=== PATIENT | male | born 1965 | race Caucasian/White ===

== ENCOUNTER 2024-04-30 09:27 | Emergency (ER) | payer MEDICARE, OTHER ==
[~2024-04-30] VITALS: Ht 160 cm; Wt 52.2 kg
[2024-04-30] MEDS ORDERED: LIDOCAINE 1%-EPI 1:100,000 20 ML VIAL ONE (09:34)
[2024-04-30] MEDS ORDERED: NEOMY/BACITRA/POLYMYXIN B OINT UD PACKET TP ONE (09:49)
[2024-04-30] MEDS: LIDOCAINE 1%-EPI 1:100,000 20 ML VIAL IJ ONE (10:01)
[2024-04-30] MEDS: NEOMY/BACITRA/POLYMYXIN B OINT UD PACKET TP ONE (10:46)
[2024-04-30] MEDS ORDERED: ACETAMINOPHEN 500 MG TABLET ONE (11:10)
[2024-04-30] MEDS: ACETAMINOPHEN 500 MG TABLET PO ONE (11:29)
[2024-04-30 12:21] VITALS: BP 108/73; O2SAT 100
== END 2024-04-30 12:22 | disposition home or self-care (01) ==
LOC: ER 09:27
DX: S01.511A Laceration without foreign body of lip, initial encounter (principal); W18.39XA Other fall on same level, initial encounter; Y93.89 Activity, other specified; Y92.89 Other specified places as the place of occurrence of the external cause; Y99.8 Other external cause status
CPT/HCPCS: 40650; 99284; J3490; A4606; A4663; A9150

== ENCOUNTER 2024-05-12 17:41 | Emergency (ER) | payer MEDICARE, OTHER ==
[~2024-05-12] VITALS: Ht 160 cm; Wt 56.7 kg
[2024-05-12 18:06] VITALS: O2SAT 98
[2024-05-12] MEDS ORDERED: ACETAMINOPHEN 500 MG TABLET ONE (18:24)
[2024-05-12] MEDS: ACETAMINOPHEN 500 MG TABLET PO ONE (18:27)
== END 2024-05-12 18:35 | disposition home or self-care (01) ==
LOC: ER 17:42
DX: S01.511D Laceration without foreign body of lip, subsequent encounter (principal); K21.9 Gastro-esophageal reflux disease without esophagitis; Z88.5 Allergy status to narcotic agent; X58.XXXD Exposure to other specified factors, subsequent encounter
CPT/HCPCS: A4606; A4663; A9150

== ENCOUNTER 2025-04-22 11:39 | Inpatient (IN) | payer MEDICARE, OTHER ==
[~2025-04-22] VITALS: Ht 160 cm; Wt 59.0 kg
[2025-04-22 12:12] LABS: PLATELET COUNT (AUTO) 366 K/uL (152-348); RED BLOOD CELL COUNT(AUTO) 3.88 MIL/uL (4.06-5.63); RED CELL DISTRIBUTION WIDTH 13.3 % (12.1-16.2); WHITE BLOOD COUNT (AUTO) 7.0 K/uL (3.6-10.2)
[2025-04-22] MEDS ORDERED: LIDOCAINE 2% (GLYDO= UROJET) 10 ML JELLY MM ONE (12:19)
[2025-04-22 12:26] LABS: CREATININE 0.8 mg/dL (0.6-1.3); SODIUM SERUM 146 mmol/L (136-145); UREA NITROGEN, BLOOD 15 mg/dL (7-18)
[2025-04-22 12:32] LABS: ASPARTATE AMINOTRANSFERASE 30 U/L (15-37); TOTAL PROTEIN, SERUM 6.5 g/dL (6.4-8.2)
[2025-04-22] MEDS: LIDOCAINE 2% (GLYDO= UROJET) 10 ML JELLY MM ONE (12:43)
[2025-04-22 13:19] LABS: *BILIRUBIN,URIN 1+ (NEGATIVE); *BLOOD, URINE 3+ (NEGATIVE); *KETONES,URINE NEGATIVE (NEGATIVE); *PROTEIN,URINE 2+ (NEGATIVE); *UROBILINOGEN,URINE 1.0 E.U./dl (NORMAL); LEUKOCYTE ESTERASE ,URINE 1+ (NEGATIVE); NITRITE, URINE POSITIVE (NEGATIVE); UGLUCOSE NEGATIVE (NEGATIVE)
[2025-04-22 13:24] LABS: *CLARITY,URINE HAZY (CLEAR); *COLOR,URINE DARK YELLOW (YELLOW)
[2025-04-22 13:38] LABS: URINE AMORPHOUS URATE MODERATE /HPF
[2025-04-22] MEDS ORDERED: CEFTRIAXONE /D5W 50ML IVPB **ER PYXIS IV ONE (13:54)
[2025-04-22] MEDS: IV NS 1000 ML 1,000 ML IV ONE (14:01)
[2025-04-22] MEDS ORDERED: IOHEXOL 350 100 ML INFUS..BTL ONE (14:03)
[2025-04-22] MEDS ORDERED: IV NORMAL SALINE 250 ML IV ONE (14:03)
[2025-04-22] MEDS ORDERED: TAMS-3 PO (14:24)
[2025-04-22] MEDS ORDERED: OLAN5TAB70 PO (14:24)
[2025-04-22] MEDS ORDERED: APIX5TAB PO (14:24)
[2025-04-22] MEDS ORDERED: diphenhydrAMINE 50 MG/1 ML VIAL ONE (14:41)
[2025-04-22] MEDS ORDERED: LORAZEPAM 2 MG/1 ML VIAL ONE (14:42)
[2025-04-22] MEDS: LORAZEPAM 2 MG/1 ML VIAL IV ONE (14:48)
[2025-04-22] MEDS: diphenhydrAMINE 50 MG/1 ML VIAL IV ONE (14:48)
[2025-04-22] MEDS ORDERED: ENOXAPARIN SODIUM 60 MG/0.6 ML DISP.SYRIN SQ ONE (16:24)
[2025-04-22] MEDS: ENOXAPARIN SODIUM 60 MG/0.6 ML DISP.SYRIN SQ ONE (16:25)
[2025-04-22] MEDS ORDERED: APIXABAN 5 MG TABLET ONE (16:52)
[2025-04-22] MEDS: APIXABAN 5 MG TABLET PO ONE (16:54)
[2025-04-22 17:01] VITALS: BP 91/61
[2025-04-22 18:32] VITALS: BP 99/51; TEMP 98.1
[2025-04-22 19:50] VITALS: BP 102/50; TEMP 97.7; O2SAT 99
[2025-04-22] MEDS ORDERED: MAGNESIUM HYDROXIDE 30 ML LIQUID UDC PO PRN (21:00)
[2025-04-22] MEDS ORDERED: ONDANSETRON 4 MG/2 ML VIAL IV PRN (21:00)
[2025-04-22] MEDS ORDERED: ACETAMINOPHEN 325 MG TABLET PO PRN (21:00)
[2025-04-22] MEDS ORDERED: REMEDY ESSENTIAL ZINC PASTE 113 GM TP PRN (21:00)
[2025-04-22] MEDS ORDERED: LIDOCAINE 2% (GLYDO= UROJET) 10 ML JELLY MM PRN (21:15)
[2025-04-22] MEDS: IV D5 1/2 NS 1000 ML 1,000 ML IV PRN (21:48)
[2025-04-22] MEDS ORDERED: MEROPENEM 1 G in IV NORMAL SALINE 100 ML IV ONE (22:00)
[2025-04-22] MEDS ORDERED: MEROPENEM 500MG/NS 50ML PB ***ER PYXIS ONLY IV ONE (22:51)
[2025-04-22] MEDS: MEROPENEM 500 MG in IV NORMAL SALINE 50 ML IV ONE (23:00)
[2025-04-22 23:49] VITALS: BP 106/61; TEMP 97.8; O2SAT 100
[2025-04-23 04:53] VITALS: BP 100/85; TEMP 97.3; O2SAT 93
[2025-04-23] MEDS: PANTOPRAZOLE SODIUM 40 MG TABLET.DR PO SCH (06:33)
[2025-04-23 07:31] VITALS: BP 104/63; TEMP 98; O2SAT 95
[2025-04-23 07:39] LABS: PLATELET COUNT (AUTO) 257 K/uL (152-348); RED BLOOD CELL COUNT(AUTO) 3.86 MIL/uL (4.06-5.63); RED CELL DISTRIBUTION WIDTH 13.9 % (12.1-16.2); WHITE BLOOD COUNT (AUTO) 4.9 K/uL (3.6-10.2)
[2025-04-23 07:50] LABS: CREATININE 0.7 mg/dL (0.6-1.3); SODIUM SERUM 144.0 mmol/L (136-145); UREA NITROGEN, BLOOD 10.0 mg/dL (7-18)
[2025-04-23] MEDS ORDERED: APIXABAN 5 MG TABLET PO SCH (09:00)
[2025-04-23] MEDS: MEROPENEM 500 MG in IV NORMAL SALINE 50 ML IV SCH (09:02)
[2025-04-23] MEDS: APIXABAN 5 MG TABLET PO SCH (09:02)
[2025-04-23] MEDS: OLANZAPINE 5 MG TABLET PO SCH ×2 (09:02→20:43)
[2025-04-23] MEDS ORDERED: MULT-225 PO (09:53)
[2025-04-23 11:33] VITALS: BP 92/39; TEMP 98; O2SAT 96
[2025-04-23 14:43] VITALS: O2SAT 96
[2025-04-23 16:00] VITALS: BP 103/52; TEMP 98.8; O2SAT 98
[2025-04-23 20:13] VITALS: BP 96/51; TEMP 98.2; O2SAT 97
[2025-04-23] MEDS: TAMSULOSIN HCL 0.4 MG CAP.SR.24H PO SCH (20:43)
[2025-04-24 00:25] VITALS: BP 97/54; TEMP 98.7; O2SAT 99
[2025-04-24] MEDS ORDERED: MEROPENEM 500MG/NS 50ML PB ***ER PYXIS ONLY IV ONE (00:58)
[2025-04-24 04:29] VITALS: BP 107/75; TEMP 98.5; O2SAT 99
[2025-04-24 06:48] LABS: PLATELET COUNT (AUTO) 318 K/uL (152-348); RED BLOOD CELL COUNT(AUTO) 3.62 MIL/uL (4.06-5.63); RED CELL DISTRIBUTION WIDTH 12.7 % (12.1-16.2); WHITE BLOOD COUNT (AUTO) 6.6 K/uL (3.6-10.2)
[2025-04-24 07:10] LABS: CREATININE 0.8 mg/dL (0.6-1.3); SODIUM SERUM 145.0 mmol/L (136-145); UREA NITROGEN, BLOOD 6.0 mg/dL (7-18)
[2025-04-24] MEDS: OLANZAPINE 2.5 MG TABLET PO SCH (08:10)
[2025-04-24 11:40] VITALS: BP 148/72; TEMP 98.1; O2SAT 99
[2025-04-24 16:05] VITALS: O2SAT 97
[2025-04-24 16:14] VITALS: BP 119/55; TEMP 97.5; O2SAT 99
[2025-04-24 19:10] VITALS: BP 106/50; TEMP 99; O2SAT 100
[2025-04-24] MEDS: MELATONIN 3 MG TABLET PO SCH (23:56)
[2025-04-25 03:51] VITALS: O2SAT 97
[2025-04-25 06:30] VITALS: BP 107/72; TEMP 97.5; O2SAT 97
[2025-04-25 06:46] LABS: PLATELET COUNT (AUTO) 315 K/uL (152-348); RED BLOOD CELL COUNT(AUTO) 3.61 MIL/uL (4.06-5.63); RED CELL DISTRIBUTION WIDTH 12.6 % (12.1-16.2); WHITE BLOOD COUNT (AUTO) 5.5 K/uL (3.6-10.2)
[2025-04-25 06:58] LABS: CREATININE 0.7 mg/dL (0.6-1.3); SODIUM SERUM 141.0 mmol/L (136-145); UREA NITROGEN, BLOOD 6.0 mg/dL (7-18)
[2025-04-25] MEDS: APIXABAN 5 MG TABLET PO SCH (08:28)
[2025-04-25] MEDS: POTASSIUM CHLORIDE 50 ML IV SCH (10:12)
[2025-04-25] MEDS ORDERED: MEDIHONEY= THERAHONEY 1.5 OZ TUBE TOP SCH (11:45)
[2025-04-25] MEDS: MEDIHONEY= THERAHONEY 1.5 OZ TUBE TOP SCH (13:18)
[2025-04-25 16:00] VITALS: BP 104/67; TEMP 98; O2SAT 98
[2025-04-25 16:05] VITALS: O2SAT 98
[2025-04-25 19:15] VITALS: BP 107/62; TEMP 98.2; O2SAT 97
[2025-04-26 05:56] VITALS: BP 106/58; TEMP 98.1; O2SAT 97
[2025-04-26 11:54] VITALS: BP 117/67; TEMP 97.8; O2SAT 97
[2025-04-26] MEDS: MAG HYDROX/AL HYDROX/SIMETH 30 ML LIQUID UDC PO PRN (12:32)
[2025-04-26] MEDS: ARGININE/GLUTAMINE/CALCIUM BMB 1 EACH POWD.PACK PO SCH (15:52)
[2025-04-26 16:00] VITALS: BP 107/63; TEMP 99; O2SAT 98
[2025-04-26 16:51] VITALS: O2SAT 98
[2025-04-26 19:30] VITALS: BP 144/76; TEMP 98.8; O2SAT 100
[2025-04-27 06:51] VITALS: BP 106/76; TEMP 98.2; O2SAT 94
== END 2025-04-27 12:25 | DRG 175 ==
LOC: ER 11:39 → MEDSURG3 17:59 → TELE3 18:15 → MEDSURG3 04-24 08:10
PROVIDERS: ADMIT Nurse Practitioner Acute Care; ATTEND Nurse Practitioner Acute Care
DX: I26.99 Other pulmonary embolism without acute cor pulmonale (principal); L89.153 Pressure ulcer of sacral region, stage 3; L89.313 Pressure ulcer of right buttock, stage 3; T83.511A Infection and inflammatory reaction due to indwelling urethral catheter, initial encounter; N39.0 Urinary tract infection, site not specified; F03.92 Unspecified dementia, unspecified severity, with psychotic disturbance; G93.40 Encephalopathy, unspecified; E87.0 Hyperosmolality and hypernatremia; I26.94 Multiple subsegmental thrombotic pulmonary emboli without acute cor pulmonale; E86.0 Dehydration; B96.89 Other specified bacterial agents as the cause of diseases classified elsewhere; Q90.9 Down syndrome, unspecified; Z87.440 Personal history of urinary (tract) infections; Z86.718 Personal history of other venous thrombosis and embolism; E83.51 Hypocalcemia; B96.20 Unspecified Escherichia coli [E. coli] as the cause of diseases classified elsewhere; S91.002A Unspecified open wound, left ankle, initial encounter; S91.001A Unspecified open wound, right ankle, initial encounter; X58.XXXA Exposure to other specified factors, initial encounter; Y92.039 Unspecified place in apartment as the place of occurrence of the external cause; S80.11XA Contusion of right lower leg, initial encounter; R60.0 Localized edema; K21.9 Gastro-esophageal reflux disease without esophagitis; N40.1 Benign prostatic hyperplasia with lower urinary tract symptoms; R29.6 Repeated falls; R32 Unspecified urinary incontinence; R33.8 Other retention of urine; Z79.01 Long term (current) use of anticoagulants; Z79.899 Other long term (current) drug therapy; Z88.5 Allergy status to narcotic agent
CPT/HCPCS: 36415; 71045; 71275; 83735; 84100; 84484; 85025; 85730; 87077; 87086; 93307; 94760; A4606; A4663; A6213; G0378; J0696; J1200; J1650; J2060; J2185; J3480; J7040; Q9967